=== PATIENT | female | born 1955 | race Caucasian/White ===

== ENCOUNTER 2023-04-14 08:20 | Outpatient (CLI) | payer OTHER, SELFPAY | END 2023-04-14 08:21 | disposition home or self-care (01) | PROVIDERS: Visit Provider Family Medicine | DX: Z00.00 Encounter for general adult medical examination without abnormal findings (principal); Z85.43 Personal history of malignant neoplasm of ovary | CPT/HCPCS: 86304 ==

== ENCOUNTER 2023-05-30 08:34 | Outpatient (CLI) | payer OTHER, SELFPAY | END 2023-05-30 08:35 | disposition home or self-care (01) | LOC: NFLDREF 06-02 10:36 | PROVIDERS: PCP Family Medicine; Visit Provider Family Medicine | DX: Z00.00 Encounter for general adult medical examination without abnormal findings (principal); I10 Essential (primary) hypertension; E78.5 Hyperlipidemia, unspecified; M85.80 Other specified disorders of bone density and structure, unspecified site | CPT/HCPCS: 80048; 80061; 80076 ==

== ENCOUNTER 2024-05-11 08:20 | Outpatient (CLI) | payer OTHER, SELFPAY | END 2024-05-11 08:21 | disposition home or self-care (01) | PROVIDERS: PCP Family Medicine; Visit Provider Family Medicine | DX: E78.00 Pure hypercholesterolemia, unspecified (principal); I10 Essential (primary) hypertension; E78.5 Hyperlipidemia, unspecified; M85.80 Other specified disorders of bone density and structure, unspecified site; Z87.39 Personal history of other diseases of the musculoskeletal system and connective tissue | CPT/HCPCS: 80053; 80061; 86304 ==

== ENCOUNTER 2024-07-09 10:48 | Outpatient (CLI) | payer OTHER, MEDICARE, SELFPAY | END 2024-07-09 10:49 | disposition home or self-care (01) | LOC: NFLDREF 07-12 05:13 | PROVIDERS: PCP Family Medicine; Referring Provider Family Medicine; Visit Provider Family Medicine | DX: E11.9 Type 2 diabetes mellitus without complications (principal); E87.6 Hypokalemia; I49.9 Cardiac arrhythmia, unspecified; E78.00 Pure hypercholesterolemia, unspecified; I10 Essential (primary) hypertension | CPT/HCPCS: 82043; 82570 ==

== ENCOUNTER 2024-08-27 09:57 | Outpatient (CLI) | payer MEDICARE, OTHER, SELFPAY | END 2024-08-27 09:58 | disposition home or self-care (01) | LOC: LKVREF 09:57 | PROVIDERS: PCP Family Medicine; Visit Provider Family Medicine | DX: E11.9 Type 2 diabetes mellitus without complications (principal); I10 Essential (primary) hypertension; Z01.818 Encounter for other preprocedural examination; E78.00 Pure hypercholesterolemia, unspecified | CPT/HCPCS: 80076 ==